=== PATIENT | female | born 1955 | race Caucasian/White ===

== ENCOUNTER 2018-12-17 18:26 | Emergency (ER) | payer OTHER ==
[2018-12-17] MEDS: ONDANSETRON 4 MG INJ IV (18:34)
[2018-12-17 18:44] LABS: ADD MAN DIFF? NO
[2018-12-17 18:50] LABS: BASOPHIL # 0.1 10^3/ul (0.0-0.1); BASOPHILS % 0.5 % (0.0-2.0); EOSINOPHILS # 0.1 10^3/ul (0.0-0.5); EOSINOPHILS % 0.6 % (0.0-7.0); HEMATOCRIT 37.5 % (37.0-47.0); HEMOGLOBIN 11.8 g/dl (12.0-16.0); LYMPHOCYTES # 3.4 10^3/ul (0.8-2.9); LYMPHOCYTES % 30.5 % (15.0-51.0); MEAN CORPUSCULAR HEMOGLOBIN 24.1 pg (29.0-33.0); MEAN CORPUSCULAR HGB CONC 31.5 g/dl (32.0-37.0); MEAN CORPUSCULAR VOLUME 76.7 fl (82.0-101.0); MEAN PLATELET VOLUME 10.6 fl (7.4-10.4); MONOCYTE # 0.6 10^3/ul (0.3-0.9); MONOCYTES % 5.1 % (0.0-11.0); NEUTROPHIL # 7.1 10^3/ul (1.6-7.5); NEUTROPHILS % 62.9 % (39.0-77.0); PLATELET COUNT 315 10^3/UL (140-415); RED BLOOD COUNT 4.89 10^6/ul (4.20-5.40)
[2018-12-17 18:50] LABS: WHITE BLOOD COUNT 11.3 10^3/ul (4.8-10.8)
[2018-12-17 19:08] LABS: ALANINE AMINOTRANSFERASE 24 IU/L (13-69); ALBUMIN 4.9 g/dl (3.3-4.9); ALBUMIN/GLOBULIN RATIO 1.28; ALKALINE PHOSPHATASE 133 IU/L (42-121); ANION GAP 15 (5-13); ASPARTATE AMINO TRANSFERASE 25 IU/L (15-46); BILIRUBIN,INDIRECT 0.3 mg/dl (0-1.1); BILIRUBIN,TOTAL 0.3 mg/dl (0.2-1.3); BLOOD UREA NITROGEN 12 mg/dl (7-20); CALCIUM 9.5 mg/dl (8.4-10.2); CARBON DIOXIDE 25 mmol/L (21-31); CHLORIDE 98 mmol/L (97-110); CREATININE 0.56 mg/dl (0.44-1.00); Estimated GFR > 60 mL/min (>60); GLUCOSE 224 mg/dl (70-220); POTASSIUM 3.6 mmol/L (3.5-5.1); SODIUM 138 mmol/L (135-144); TOTAL PROTEIN 8.7 g/dl (6.1-8.1)
[2018-12-17 19:10] LABS: INR 0.85; PARTIAL THROMBOPLASTIN TIME 24.2 Sec (23.0-35.0); PROTIME 11.7 Sec (11.9-14.9); PT RATIO 0.9
[2018-12-17 19:19] LABS: TROPONIN-I < 0.012 ng/ml (0.000-0.120)
[2018-12-17] MEDS: SOD CHLORIDE 0.9% 1,000 ML IV (19:42)
[2018-12-17 21:59] LABS: ADD UMIC YES; UR ASCORBIC ACID NEGATIVE (NEGATIVE); UR BILIRUBIN (Dip) NEGATIVE (NEGATIVE); UR BLOOD (Dip) NEGATIVE (NEGATIVE); UR CLARITY CLEAR (CLEAR); UR COLOR STRAW (YELLOW); UR GLUCOSE (Dip) 1+ mg/dL (NEGATIVE); UR KETONES (Dip) TRACE mg/dL (NEGATIVE); UR LEUKOCYTE ESTERASE (Dip) NEGATIVE Leu/ul (NEGATIVE); UR NITRITE (Dip) NEGATIVE (NEGATIVE); UR RBC 1 /HPF (0-5); UR SPECIFIC GRAVITY (Dip) 1.011 (1.003-1.030); UR TOTAL PROTEIN (Dip) 2+ mg/dl (NEGATIVE); UR UROBILINOGEN (Dip) NEGATIVE (NEGATIVE); UR WBC 0 /HPF (0-5)
[2018-12-17] MEDS ORDERED: ONDANSETRON (ODT) 4 MG TAB ODT (22:33)
[2018-12-17] MEDS: ONDANSETRON (ODT) 4 MG TAB ODT (22:34)
== END 2018-12-17 22:34 | disposition home or self-care (01) ==
LOC: E/R 18:26
DX: E11.65 Type 2 diabetes mellitus with hyperglycemia (principal); I16.0 Hypertensive urgency; I10 Essential (primary) hypertension; R41.82 Altered mental status, unspecified; Z79.84 Long term (current) use of oral hypoglycemic drugs
CPT/HCPCS: 36415; 70450; 71045; 74176; 80053; 81001; 82962; 84484; 85025; 85610; 85730; 93005; 96374; 99285-25